=== PATIENT | female | born 1975 | race African-American/Black ===

== ENCOUNTER 2021-05-03 06:11 | Inpatient (IN) | payer OTHER ==
[~2021-05-03] VITALS: Ht 177.8 cm; Wt 145.1 kg
[2021-05-03] MEDS ORDERED: DEXTROSE 10% 1,000 ML IV ONE (07:00)
[2021-05-03] MEDS ORDERED: SODIUM CHLORIDE 0.9% 1,000 ML IV ONE ×2 (07:00)
[2021-05-03 07:13] LABS: Basophils # (auto) 0.1 10 ^3/uL (0-0.2); Basophils % (auto) 1.2 % (0.0-2.0); Eosinophils # (auto) 0 10 ^3/uL (0-0.8); Eosinophils % (auto) 0.9 % (0.0-7.0); Hemoglobin 12.7 g/dL (12.2-16.2); Lymphocytes # (auto) 1.7 10 ^3/uL (0.4-5.4); Mean Corpuscular Hemoglobin 25.7 pg (28.0-32.0); Mean Corpuscular Hgb Conc. 33.3 g/dL (32.0-36.0); Mean Corpuscular Volume 77.3 fL (80.0-100.0); Monocytes # (auto) 0.3 10 ^3/uL (0-1.3); Monocytes % (auto) 5.5 % (0.0-12.0); Neutrophils # (auto) 2.8 10 ^3/uL (1.6-8.6); Neutrophils % (auto) 57.4 % (37.0-80.0); Red Blood Cells 4.92 10^6/uL (4.0-5.20); Red Cell Distribution Width 15.6 % (11.8-14.3); White Blood Cell 4.8 10^3/uL (4.4-10.8)
[2021-05-03 07:24] LABS: Albumin 3.2 g/dL (3.4-5.0); Calcium 8.6 mg/dL (8.5-10.1); Potassium 3.5 mmol/L (3.5-5.1)
[2021-05-03 07:27] LABS: BUN/Creatinine Ratio 21.4; Bilirubin, Total 0.2 mg/dL (0.2-1.0); Total Protein 7.4 g/dL (6.4-8.2)
[2021-05-03 08:19] LABS: Urine Bacteria FEW /hpf (None Seen); Urine Blood Negative /uL (Negative); Urine Specific Gravity 1.003 (1.001-1.035); Urine WBC <1 /hpf (0 - 5)
[2021-05-03] MEDS ORDERED: HYDROcodone-ACET 5/325MG TAB PO PRN (10:30)
[2021-05-03] MEDS ORDERED: MORPHINE SULF INJ 2 MG/ML SYRINGE 1ML IV PRN ×2 (10:30)
[2021-05-03] MEDS ORDERED: ACETAMINOPHEN 325 MG TAB PO PRN (10:30)
[2021-05-03] MEDS ORDERED: NITROGLYCERIN 0.4 MG SL TAB SL PRN (10:30)
[2021-05-03] MEDS ORDERED: ONDANSETRON HCL 4 MG/2 ML VIAL IV PRN (10:30)
[2021-05-03] MEDS ORDERED: DEXTROSE 10% 1,000 ML IV SCH ×2 (17:00→18:00)
[2021-05-03] MEDS ORDERED: ACCU-CHEK COMFORT CURVE STRIP VI SCH (18:00)
[2021-05-03] MEDS: DEXTROSE 10% 1,000 ML IV SCH (18:57)
[2021-05-03 20:20] VITALS: BP 149/85
[2021-05-03] MEDS: ACCU-CHEK COMFORT CURVE STRIP VI SCH (20:56)
[2021-05-03] MEDS ORDERED: CETI-120 PO (21:04)
[2021-05-03] MEDS ORDERED: MECL12.514 PO (21:04)
[2021-05-03] MEDS ORDERED: ATOR-47 PO (21:04)
[2021-05-03] MEDS ORDERED: LIRA18IN2 SUBCUT (21:04)
[2021-05-03] MEDS ORDERED: CHLO50TA PO (21:04)
[2021-05-03] MEDS ORDERED: ASPI-543 PO (21:04)
[2021-05-03] MEDS ORDERED: LISI40TA11 PO (21:04)
[2021-05-03] MEDS ORDERED: INSUINJ18 SC (21:04)
[2021-05-03] MEDS ORDERED: INSU100I33 SC (21:04)
[2021-05-03 22:00] VITALS: BP 149/85
[2021-05-04] MEDS: ACCU-CHEK COMFORT CURVE STRIP VI SCH ×2 (02:00→05:46)
[2021-05-04] MEDS: DEXTROSE 10% 1,000 ML IV SCH (02:10)
[2021-05-04 05:00] VITALS: BP 115/58
[2021-05-04 08:39] VITALS: BP 127/77
[2021-05-04] MEDS ORDERED: DEXTROSE (50%) 50ML SYRG IV PRN (10:30)
[2021-05-04] MEDS ORDERED: ACCU-CHEK COMFORT CURVE STRIP VI SCH (11:30)
[2021-05-04] MEDS ORDERED: InsuLIN REG 1unit/0.01ml Soln (100units/ml) SC SCH ×2 (11:30→22:00)
[2021-05-04 12:42] VITALS: BP 136/76
== END 2021-05-04 12:50 | disposition home or self-care (01) | DRG 637 ==
LOC: ER 06:11 → EDBD 06:11 → TELE 10:25 → TELE-WESTW 20:01
PROVIDERS: ADMIT Internal Medicine; ATTEND Internal Medicine
DX: E11.649 Type 2 diabetes mellitus with hypoglycemia without coma (principal); G93.41 Metabolic encephalopathy; Z68.42 Body mass index [BMI] 45.0-49.9, adult; E66.01 Morbid (severe) obesity due to excess calories; I10 Essential (primary) hypertension; Z79.4 Long term (current) use of insulin; Z20.822 Contact with and (suspected) exposure to COVID-19
CPT/HCPCS: 36415; 70450; 71045; 80053; 81001; 82962; 83036; 84484; 85025; 85049; 87426; 93005; 96360; 96361; G0378; J1815

== ENCOUNTER 2021-06-22 11:29 | Emergency (ER) | payer OTHER ==
[~2021-06-22] VITALS: Ht 177.8 cm; Wt 176.9 kg
[~2021-06-22 11:29] MED LIST: ASPI-543 PO; ATOR-47 PO; CETI-120 PO; CHLO50TA PO; LIRA18IN2 SUBCUT; LISI40TA11 PO; MECL12.514 PO
[2021-06-22 12:59] LABS: Basophils # (auto) 0.1 10 ^3/uL (0-0.2); Basophils % (auto) 0.7 % (0.0-2.0); Eosinophils # (auto) 0.1 10 ^3/uL (0-0.8); Eosinophils % (auto) 0.5 % (0.0-7.0); Hemoglobin 11.2 g/dL (12.2-16.2); Lymphocytes # (auto) 1.7 10 ^3/uL (0.4-5.4); Mean Corpuscular Hemoglobin 24.6 pg (28.0-32.0); Mean Corpuscular Hgb Conc. 31.1 g/dL (32.0-36.0); Mean Corpuscular Volume 78.9 fL (80.0-100.0); Monocytes # (auto) 0.6 10 ^3/uL (0-1.3); Monocytes % (auto) 5.2 % (0.0-12.0); Neutrophils % (auto) 78.6 % (37.0-80.0); Red Blood Cells 4.56 10^6/uL (4.0-5.20); Red Cell Distribution Width 15.6 % (11.8-14.3); White Blood Cell 11.5 10^3/uL (4.4-10.8)
[2021-06-22 13:13] LABS: Urine WBC None Seen /hpf (0 - 5)
[2021-06-22 13:22] LABS: Albumin 3.3 g/dL (3.4-5.0); Calcium 8.9 mg/dL (8.5-10.1); Potassium 3.6 mmol/L (3.5-5.1)
[2021-06-22 13:25] LABS: BUN/Creatinine Ratio 18.8; Bilirubin, Total 0.2 mg/dL (0.2-1.0); Total Protein 7.6 g/dL (6.4-8.2)
[2021-06-22 13:28] LABS: Urine Bacteria FEW /hpf (None Seen); Urine Blood 2+ /uL (Negative); Urine Mucus FEW (None Seen); Urine Specific Gravity 1.017 (1.001-1.035)
[2021-06-22 16:26] VITALS: BP 155/84
== END 2021-06-22 16:29 | disposition home or self-care (01) ==
LOC: EDBD 11:29 → ER 11:29
DX: G93.41 Metabolic encephalopathy (principal); I10 Essential (primary) hypertension; E46 Unspecified protein-calorie malnutrition; E11.649 Type 2 diabetes mellitus with hypoglycemia without coma; Z68.43 Body mass index [BMI] 50.0-59.9, adult; Z79.82 Long term (current) use of aspirin; Z79.899 Other long term (current) drug therapy
CPT/HCPCS: 36415; 80053; 81001; 82962; 85025